=== PATIENT | female | born 1950 | race Caucasian/White ===

== ENCOUNTER 2021-03-06 19:18 | Emergency (ER) | payer OTHER ==
[~2021-03-06] VITALS: Ht 154.9 cm; Wt 67.0 kg
[2021-03-06] MEDS ORDERED: CARDIZEM LA180 M1 PO (19:23)
[2021-03-06] MEDS ORDERED: EFFEXOR XR37.5 MG PO (19:24)
[2021-03-06] MEDS ORDERED: DIGITEK125 MC2 PO (19:24)
[2021-03-06] MEDS ORDERED: DULCOLAX STOOL100 M1 PO (19:24)
[2021-03-06] MEDS ORDERED: FLORASTOR250 MG PO (19:25)
[2021-03-06] MEDS ORDERED: LANTUS SUBQ (19:25)
[2021-03-06] MEDS ORDERED: TOPROL XL50 MG (19:26)
[2021-03-06] MEDS ORDERED: MIRALAX119 GM PO (19:26)
[2021-03-06] MEDS ORDERED: LASIX 40 MG TAB40 MG PO (19:26)
[2021-03-06] MEDS ORDERED: NORCO5 PO (19:27)
[2021-03-06] MEDS ORDERED: MILLTRIUM SENI1 EACH PO (19:27)
[2021-03-06] MEDS ORDERED: KLOR-CON 1010 MEQ PO (19:28)
[2021-03-06] MEDS ORDERED: TUMS DUAL ACTI1 EACH PO (19:28)
[2021-03-06] MEDS ORDERED: ONDANSETRON HCL4 M2 PO (19:28)
[2021-03-06] MEDS ORDERED: XANAX 0.5 MG0.5 MG PO (19:29)
[2021-03-06] MEDS ORDERED: WARFARIN SODIUM4 MG PO (19:29)
[2021-03-06 22:40] LABS: ABSOLUTE BASOPHILS 0.1 thou/uL (0.0-0.2); ABSOLUTE EOSINOPHILS 0.4 thou/uL (0.0-0.7); ABSOLUTE LYMPHOCYTES 0.8 thou/uL (0.8-5.3); ABSOLUTE NEUTROPHILS 9.9 thou/uL (1.6-8.1); BASOPHILS 0.7 %; EOSINOPHILS 3.2 %; HEMATOCRIT 23.2 % (37.0-47.0); HEMOGLOBIN 7.7 gm/dL (12.0-15.0); LYMPHOCYTES 6.6 %; MCH 26.3 pg (26.0-34.0); MCHC 33.2 g/dL (28.0-37.0); MCV 79.1 fL (80.0-100.0); MONOCYTES 8.3 %; MPV 6.8 fl. (7.2-11.1); NUCLEATED RBCS 0 /100WBC; PLATELET COUNT* 284 thou/uL (150-400); POLYS 81.2 %; RBC 2.93 mil/uL (4.20-5.00); RDW-CV 15.2 % (10.5-14.5); WBC 12.2 thou/uL (4.0-11.0)
[2021-03-06 22:52] LABS: ANION GAP 7 mmol/L (7-16); BUN 60 mg/dL (7-18); CALCIUM 8.4 mg/dL (8.5-10.1); CHLORIDE 103 mmol/L (98-107); CO2 27 mmol/L (21-32); CREATININE 3.5 mg/dL (0.6-1.3); GLUCOSE 124 mg/dL (70-99); POTASSIUM 4.2 mmol/L (3.5-5.1); SODIUM 137 mmol/L (136-145)
[2021-03-06 23:02] LABS: ALBUMIN 1.9 g/dL (3.4-5.0); ALKALINE PHOSPHATASE 133 U/L (46-116); NT-PRO BRAIN NAT PEPTIDE > 35000 pg/mL (<300); SGOT 29 U/L (15-37); SGPT 9 U/L (30-65); TOTAL BILIRUBIN 0.3 mg/dL (<0.1-1.0); TOTAL PROTEIN 6.2 g/dL (6.4-8.2)
[2021-03-06 23:56] LABS: URINE CLARITY TURBID; URINE COLOR YELLOW
[2021-03-06 23:57] LABS: URINE PROTEIN 3+ (Negative); URINE SPECIFIC GRAVITY 1.025 (1.005-1.030)
[2021-03-06 23:58] LABS: URINE BILIRUBIN NEGATIVE (Negative); URINE BLOOD NEGATIVE (Negative); URINE GLUCOSE-RANDOM NEGATIVE (Negative); URINE KETONES TRACE (Negative)
[2021-03-06 23:59] LABS: URINE LEUKOCYTES-REFLEX 3+ (Negative); URINE NITRITE-REFLEX NEGATIVE (Negative); URINE UROBILINOGEN 0.2 E.U./dl (0.2-1.0)
[2021-03-07 00:03] LABS: SQUAMOUS NONE SEEN /LPF (0-3)
[2021-03-07 00:04] LABS: CASTS None Seen /LPF (None Seen)
[2021-03-07 00:05] LABS: URINE WBC-REFLEX >25 Many /HPF (0-5)
[2021-03-07 00:06] LABS: CRYSTALS None Seen /LPF (None Seen); URINE RBC 3-10 Few /HPF (0-2)
[2021-03-07 00:16] LABS: TRANSITIONAL EPITHEL CELL 0-3 Few /LPF (None Seen)
[2021-03-07 00:17] LABS: YEAST-REFLEX Present (None Seen)
[2021-03-07 01:00] VITALS: BP 154/58
--- NOTE | 2021-03-07 14:04 | EKG ---
[place] [address] ELECTROCARDIOGRAM REPORT Name: JOSEPH PEREZ [id number] Admission: 03/06/21 Attend Phys: Discharge: 03/07/21 Date of : 52 Date of Service: 03/06/212217 Report #: [id number] THIS REPORT FOR: //name// [facility] ED Test Date: 2021-03-06 Test Time: 22:18:24 Pat Name: JOSEPH PEERZ Department: Room: Gender: Claims Representative: : 1950 Requested By: Rowan Rouse Order Number: [id number] MD: Marco Vaz Measurements Intervals [place] Rate: 69 P: [place]: QRS: 98 QRSD: 153 T: -76 QT: 452 QTc: 485 Interpretive Statements Atrial fibrillation Atypical left bundle branch block No previous ECG available for comparison Electronically Signed On 03-07-2021 14:04:24 CDT by Marco Vaz [email or web address] <ELECTRONICALLY SIGNED> By: Marco Vaz MD, [facility] 03/07/21 1404 17 17 Marco aVz MD, [facility] /EPI
== END 2021-03-07 01:00 | disposition home or self-care (01) ==
LOC: M.ERS 19:18
PROVIDERS: Personal Emergency Response Attendant
DX: L89.159 Pressure ulcer of sacral region, unspecified stage (principal); D64.9 Anemia, unspecified; I12.9 Hypertensive chronic kidney disease with stage 1 through stage 4 chronic kidney disease, or unspecified chronic kidney disease; N18.9 Chronic kidney disease, unspecified; I48.91 Unspecified atrial fibrillation; E78.5 Hyperlipidemia, unspecified; Z79.01 Long term (current) use of anticoagulants; Z79.899 Other long term (current) drug therapy

== ENCOUNTER 2021-03-24 14:55 | Inpatient (IN) | payer OTHER ==
[~2021-03-24] VITALS: Ht 165.1 cm; Wt 68.5 kg
--- NOTE | ~2021-03-24 | PROC ---
[address] [address] PROCEDURE REPORT Name: JOSEPH PEREZ Room: [address] IN M.R.#: [id number] Admission: 03/24/21 Attend Phys: Indiana Kerr MD Discharge: 04/04/21 Date of : 52 Report #: [id number] THIS REPORT FOR: cc: Kris Newell William F. DO MYA,Medical Records Staff ~ For GI report, please see the Provation report in Perceptive 7 content. By: 1322Medical Records Staff MYA /STUART
[~2021-03-24 14:55] MED LIST: CARDIZEM LA180 M1 PO; DIGITEK125 MC2 PO; DULCOLAX STOOL100 M1 PO; EFFEXOR XR37.5 MG PO; FLORASTOR250 MG PO; KLOR-CON 1010 MEQ PO; LANTUS SUBQ; LASIX 40 MG TAB40 MG PO; MILLTRIUM SENI1 EACH PO; MIRALAX119 GM PO; NORCO5 PO; ONDANSETRON HCL4 M2 PO; TOPROL XL50 MG; TUMS DUAL ACTI1 EACH PO; WARFARIN SODIUM4 MG PO; XANAX 0.5 MG0.5 MG PO
[2021-03-24 14:59] VITALS: BP 144/65
[2021-03-24] MEDS ORDERED: LANOXIN125 MCG PO (15:07)
[2021-03-24] MEDS ORDERED: DULCOLAX STOOL100 M1 PO (15:07)
[2021-03-24] MEDS ORDERED: CARDIZEM LA180 M1 PO (15:07)
[2021-03-24] MEDS ORDERED: LASIX 40 MG TAB40 MG PO (15:08)
[2021-03-24] MEDS ORDERED: EFFEXOR XR37.5 MG PO (15:08)
[2021-03-24] MEDS ORDERED: FLORASTORKIDS250 MG PO (15:08)
[2021-03-24] MEDS ORDERED: LANTUS SUBQ (15:08)
[2021-03-24] MEDS ORDERED: LOPRESSOR50 MG PO (15:09)
[2021-03-24] MEDS ORDERED: MIRALAX17 GM PO (15:09)
[2021-03-24] MEDS ORDERED: ZOFRAN ODT4 MG PO (15:09)
[2021-03-24] MEDS ORDERED: RENAL VITAMIN0.8 MG PO (15:09)
[2021-03-24] MEDS ORDERED: TUMS300 MG PO (15:09)
[2021-03-24] MEDS ORDERED: NORCO5 PO (15:09)
[2021-03-24] MEDS ORDERED: XANAX 0.5 MG0.5 MG PO (15:10)
[2021-03-24] MEDS ORDERED: JANTOVEN4 MG PO (15:10)
[2021-03-24 16:05] LABS: ABSOLUTE EOSINOPHILS 0.2 thou/uL (0.0-0.7); ABSOLUTE LYMPHOCYTES 0.5 thou/uL (0.8-5.3); ABSOLUTE MONOCYTES 0.7 thou/uL (0.0-1.2); ABSOLUTE NEUTROPHILS 3.3 thou/uL (1.6-8.1); BASOPHILS 0.7 %; EOSINOPHILS 4.2 %; HEMATOCRIT 20.9 % (37.0-47.0); HEMOGLOBIN 7.1 gm/dL (12.0-15.0); LYMPHOCYTES 11.5 %; MCH 27.5 pg (26.0-34.0); MCHC 33.9 g/dL (28.0-37.0); MPV 7.8 fl. (7.2-11.1); NUCLEATED RBCS 0 /100WBC; PLATELET COUNT* 188 thou/uL (150-400); POLYS 69.6 %; RBC 2.59 mil/uL (4.20-5.00); RDW-CV 17.1 % (10.5-14.5); WBC 4.7 thou/uL (4.0-11.0)
[2021-03-24 16:11] LABS: CALCIUM 8.5 mg/dL (8.5-10.1); CREATININE 3.9 mg/dL (0.6-1.3); POTASSIUM 5.7 mmol/L (3.5-5.1)
[2021-03-24 16:16] LABS: ALBUMIN 2.2 g/dL (3.4-5.0); TOTAL BILIRUBIN 0.3 mg/dL (<0.1-1.0); TOTAL PROTEIN 6.3 g/dL (6.4-8.2)
--- NOTE | 2021-03-24 19:46 | NUR ---
PT'S TRI PEREZ WOULD LIKE PHONE CALL IF PT GETS A ROOM BEFORE HE IS ABLE TO RETURN TO ED - [phone]
[2021-03-24 20:29] VITALS: BP 135/65
[2021-03-24 22:12] VITALS: BP 138/67
[2021-03-25] VITALS (16 sets, daily range): BP systolic 119–161; BP diastolic 55–74
--- NOTE | 2021-03-25 05:34 | NUR ---
PATIENT ARRIVED ON FLOOR FROM ER AT ABOUT 2044. PATIENT ADMISSION HISTORY AND ASSESSMENT WAS COMPLETED CHARTED. PATIENT IS VERY HARD OF HEARING TO POINT OF ALMOST BEING DEAF. PATIENT CAN TALK, WAS TOLD PATIENT IS ABLE TO WRITE WHAT SHE NEEDS TO COMMUNICATE BUT PATIENT CANNOT SEE VERY WELL EITHER. ATTEMPTED TO WRITE OUT QUESTIONS BUT SHE WAS NOT UNDERSTANDING OR COULD NOT SEE WHAT I WROTE. COLOSTOMY WAS LEAKING WHEN PATIENT ARRIVED TO THE FLOOR NEW DRESSING AND BAG WAS PLACED. PATIENT HAD CAME WITH A WOUND VAC DRESSING STILL IN PLACE TO SACRAL WOUND. DRESSING WAS TAKEN DOWN AND A WET TO DRY WAS PLACED. PICTURES WERE TAKEN OF SACRAL WOUND, LEFT HEEL WOUND, AND LEFT HIP WOUND AND PLACED IN THE CHART. PATIENT WAS 130-140'S IN HER VITALS AT 4 AM. EKG WAS GOTTEN SHOWED AFIB. DR. WALKER WAS CALLED FOR ORDERS. ORDERS WERE RECEIVED TO TRANSFER TO [facility] AND YONATHAN CHAUDHARI. REPORT WAS CALLED TO [facility]AKTA. PATIENT WAS TRANSFERRED TO [facility] WITH HER BELONGINGS AT ABOUT 0586.
--- NOTE | 2021-03-25 05:54 | NUR ---
PT TRANSFERED TO ROOM 218 AT 0530. PT GIVEN CARDIZEM BOLUS THEN STARTED CARDIZEM DRIP FOR TREATMENT OF AFIB/RVR.
[2021-03-25 12:06] LABS: MCH 27.3 pg (26.0-34.0); MCHC 33.5 g/dL (28.0-37.0); MCV 81.5 fL (80.0-100.0); MPV 7.4 fl. (7.2-11.1); RBC 1.93 mil/uL (4.20-5.00); RDW-CV 16.9 % (10.5-14.5); WBC 3.8 thou/uL (4.0-11.0)
[2021-03-25 12:10] LABS: HEMATOCRIT 15.7 % (37.0-47.0); HEMOGLOBIN 5.3 gm/dL (12.0-15.0)
[2021-03-25 12:11] LABS: CALCIUM 7.5 mg/dL (8.5-10.1); CREATININE 3.6 mg/dL (0.6-1.3); POTASSIUM 4.9 mmol/L (3.5-5.1)
[2021-03-25 12:56] LABS: INR 1.8; PROTIME 18.1 Seconds (9.20-11.50)
[2021-03-25 18:45] LABS: HEMATOCRIT 21.3 % (37.0-47.0); HEMOGLOBIN 7.2 gm/dL (12.0-15.0)
--- NOTE | 2021-03-25 18:55 | NUR ---
RECEIVED REPORT. ASSUMED CARE OF PT AROUND 0730. AM ASSESSMENT AND VITALS COMPLETED CHARTED. MEDS PER EMAR. CARDIZEM GTT STOPPED AROUND 1435 PER PROTOCOL. 1 UNIT PRBC'S TRANSFUSED WITH HGB RECHECK 7.2. IRON DEXTRAN TO BE INFUSED BY DEMETRIA RN. AT BEDSIDE MOST OF SHIFT. PT TEARFUL AND UPSET ABOUT HER CONDITION - PT AND HER HAVE THOUGHT SOME ABOUT HOSPICE. DR ROME. TURNS Q2HRS AND PRN. DRESSING TO COCCYX/SACRAL WOUND CHAGNED THIS EVENING. SUPRAPUBIC ABEL IN PLACE TO DD. COLOSTOMY BAG EMPTIED. PUBLIC RELATIONS INTERN IN PLACE. PT REMAINS IN AFIB, RATE CONTROLLED. VERY POOR APPETITE - ASSISTED WITH ALL MEALS. FALL PRECAUTIONS IN PLACE. CALL LIGHT WITHIN REACH. HOURLY ROUNDING PERFORMED.
[2021-03-26 04:30] VITALS: BP 154/67
--- NOTE | 2021-03-26 06:34 | NUR ---
PT RECEIVED IRON DEXTROSE TEST DOSE. PT DID WELL WITH THAT SO SECOND DOSE GIVEN OVER 5 HOURS WITH NO ADVERSE REACTIONS.
[2021-03-26 08:00] VITALS: BP 147/70
[2021-03-26 08:38] LABS: INR 1.9; PROTIME 19.2 Seconds (9.20-11.50)
[2021-03-26 09:49] LABS: CALCIUM 7.5 mg/dL (8.5-10.1); CREATININE 3.4 mg/dL (0.6-1.3)
[2021-03-26 09:50] LABS: POTASSIUM 4.9 mmol/L (3.5-5.1)
--- NOTE | 2021-03-26 12:19 | CON ---
[address] [address] CONSULTATION Name: JOSEPH PEREZ Room: [address] ADM IN M.R.#: [id number] Admission: 03/24/21 Attend Phys: Indiana Kerr MD Discharge: Date of : 52 Report #: [id number] THIS REPORT FOR: cc: Kris Newell William F. DO Biggs, F. Douglas MD [facility] ~ DOC #: [id number] Yung Eduardo MD [facility] DATE OF CONSULTATION: 03/24/2021 CARDIOLOGY CONSULTATION HISTORY OF PRESENT ILLNESS: I was asked by Dr. Indiana Kerr to see this 71-year-old white female in Cardiology consultation for evaluation and treatment of atrial fibrillation with a rapid ventricular response. This lady has chronic atrial fibrillation, apparently. She is unknown to the service. She cannot give a history. 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 She is in a senior care. History was gleaned from the chart. She does have insulin-dependent diabetes mellitus. She has chronic diastolic heart failure. She does have chronic atrial fibrillation. She has anemia that is felt to be iron deficient, although she does have chronic kidney disease with a creatinine approximately 4. She has a stage 4 decubitus. She is quite deaf. She also has paraplegia and left bundle-branch block. Her paraplegia apparently came from a spinal blood clot, which is a complication of chemotherapy several years ago. She is not sure what the chemotherapy is for. She usually gets her care at [place], but she was brought here because the hospital was full. Her deafness apparently occurs from the antibiotic. I believe it was vancomycin. 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 She has a history of UTIs. She has a colostomy. She has neuromuscular dysfunction of the bladder. She has hypertension. She has had aortocoronary bypass graft; however, I do think she also has a mechanical heart valve from listening. I cannot tell what mechanical heart valve it is, but it is definitely mechanical. She is on Coumadin. Her home medications also include diltiazem 180 mg daily at bedtime, digoxin 0.125 mg daily, Effexor 37.5 mg daily, glargine insulin 10 units subQ at bedtime, Lasix 40 mg daily, metoprolol 50 mg daily, warfarin is apparently 4 mg daily. She has been placed on a Cardizem drip and her heart rate has been controlled. She gets a variety of p.r.n. She also gets a multivitamin. REVIEW OF SYSTEMS: Unobtainable. FAMILY HISTORY: Unobtainable SOCIAL HISTORY: Unobtainable. I do not believe she smokes [place] [address] CONSULTATION Name: JOSEPH PEREZ Room: [address] IN M.R.#: [id number] Admission: 03/24/21 Attend Phys: Indiana Kerr MD Discharge: Date of : 52 Report #: [id number] PHYSICAL EXAMINATION: GENERAL: She presents as a well-developed, not particularly well nourished, pale white female in no acute distress. She appears chronically ill. VITAL SIGNS: Her pulse is 81 and regular. Blood pressure is 119/56. Respirations are 16 and regular. She has a temperature of 99.8. HEENT: Atraumatic. Eyes clear. NECK: Supple. There is no jugular venous distention or hepatojugular reflux. Thyroid is not enlarged. There is no adenopathy. SKIN: Warm and dry. Mucous membranes are moist. LUNGS: Reveal decreased breath sounds diffusely. HEART: Revealed mechanical heart tones. The rhythm was irregularly irregular. The rate was approximately 80. PMI is not displaced. There were no murmurs, rubs, thrills, heaves or gallops. ABDOMEN: Soft, but diffusely tender. There were no palpable masses. There is no organomegaly. EXTREMITIES: Revealed no cyanosis, clubbing or edema. NEUROLOGIC: The patient did not mentate normally. She could talk, but talk minimally. She could not hear. She did move her arms normally. She could not move her lower extremities normally. LABORATORY DATA: Her EKG showed atrial fibrillation with a rapid ventricular response and left bundle branch block. Heart rate was 132 that is from early this morning at 4:33 a.m. A followup EKG at 10:00 a.m. showed atrial fibrillation with a controlled ventricular response. The heart rate was 104. There were frequent VPCs. There was left bundle branch block. IMPRESSION: 1. Atrial fibrillation with a rapid ventricular response. This lady has chronic atrial fibrillation. 2. Ventricular premature complexes. 3. Insulin-dependent diabetes mellitus. 4. Chronic diastolic heart failure. 5. Anemia. 6. Iron deficiency. 7. Fever of uncertain cause. 8. Stage 4 decubitus. 9. Deafness. 10. Chronic kidney disease. 11. Paraplegia. 12. Left bundle-branch block. 13. Cognitive defect. RECOMMENDATION: I would continue her current meds and get her back on most of her home meds. I did investigate the cause of her fever and treat her [address] [place] [address] CONSULTATION Name: JOSEPH PEREZ Room: [address] IN ..#: [id number] Admission: 03/24/21 Attend Phys: Indiana Kerr MD Discharge: Date of : 52 Report #: [id number] aggressively and consult Surgery with regard to her decubitus. I will be careful not to fluid overload this lady. Please see my orders. She needs an echo and she needs her digoxin level checked. She will probably need to be put back on digoxin. She will probably need to be put back on a beta-prashant. The dose should be split; however, and she will need to be put back on her oral dose of Cardizem ultimately. Thank you very much for asking me to see this patient. If you have any questions, please feel free to contact me. Yung Eduardo MD [facility] DFB/KENA/SOT <ELECTRONICALLY SIGNED> By: James Eduardo MD, [facility] 03/26/21 1219 [id number]. Yung Eduardo MD, [facility] /nt
[2021-03-26 12:45] VITALS: BP 140/81
[2021-03-26 13:22] LABS: HEMATOCRIT 20.1 % (37.0-47.0); MCH 28.1 pg (26.0-34.0); MCHC 34.7 g/dL (28.0-37.0); MCV 81.1 fL (80.0-100.0); MPV 8.1 fl. (7.2-11.1); RBC 2.48 mil/uL (4.20-5.00); RDW-CV 16.9 % (10.5-14.5); WBC 4.4 thou/uL (4.0-11.0)
[2021-03-26 15:57] LABS: URINE BILIRUBIN NEGATIVE (Negative); URINE BLOOD 3+ (Negative); URINE CLARITY CLOUDY; URINE COLOR YELLOW; URINE GLUCOSE-RANDOM NEGATIVE (Negative); URINE KETONES NEGATIVE (Negative); URINE LEUKOCYTES 3+ (Negative); URINE NITRITE NEGATIVE (Negative); URINE PROTEIN 2+ (Negative); URINE UROBILINOGEN 0.2 E.U./dl (0.2-1.0)
[2021-03-26 16:09] LABS: SQUAMOUS 0-3 Few /LPF (0-3)
[2021-03-26 16:10] LABS: BACTERIA >30 Many /HPF (None Seen); CASTS None Seen /LPF (None Seen); CRYSTALS None Seen /LPF (None Seen); URINE RBC >20 Many /HPF (0-2); URINE WBC >25 Many /HPF (0-5)
[2021-03-26 16:25] VITALS: BP 132/67
--- NOTE | 2021-03-26 19:00 | NUR ---
RECEIVED REPORT. ASSUMED CARE OF PT AROUND 0730. AM ASSESSMENT AND VITALS COMPLETED CHARTED. MEDS PER EMAR. RESEARCH NURSE PRACTITIONER IN PLACE, TRACING CHARTED. AFIB RATE CONTROLLED. AND DAUGHTER AT BEDSIDE AT TIMES. PT REFUSED BREAKFAST AND LUNCH BUT AT ALL OF DINNER. SUPRAPUBIC CATHETER IN PLACE AND DRAINING - CATH CARES COMPLETED. UA'S SENT DOWN. COLOSTOMY EMPTIED TWICE AND CHARTED. RIGHT UPPER ARM PICC RECEIVED CATH FLOW AND NOW DRAWS BLOOD. PICC DRESSING CHANGED AND CAPS CHANGED. EXTENSIVE WOUND CARE COMPLETED AND SATURDAY PICS TAKEN. WOUNDS FOLLOWS: SACRAL/COCCYX STAGE 4 DECUB - SEE CHARTING RIGHT HEEL PRESSURE INJURY - SEE CHARTING LEFT HEEL - ALMOST HEALED, SMALL PRESSURE INJURY; REMAINS NON-BLANCHABLE; DRY AND FLAKEY - BORDERED FOAM APPLIED. LEFT BUTTOCK/THIGH JUNCTURE - POTENTIAL SHEARING WOUND/PRESSURE WOUND; HEALING WITH SLOUGH MATERIAL PRESENT; BLED UPON CLEANING; BORDERED FOAM APPLIED RIGHT BUTTOCK/THIGH JUNCTURE - POTENTIAL SHEARING WOUND/PRESSURE WOUND; HEALING WITH SLOUGH MATERIAL PRESENT; ALSO BLED UPON CLEANING; BORDERD FOAM APPLIED. WOUND CARE CONSULT PLACED FOR TOMOROW. LEFT LOWER EXTREMITY/POSTERIOR THIGH - OPEN PRESSURE WOUND WITH BRISK BLEEDING UPON CLEANING; BORDERED FOAM APPLIED.
[2021-03-26 20:00] VITALS: BP 134/52
[2021-03-27] VITALS: BP 128/62
[2021-03-27 04:00] VITALS: BP 157/66
--- NOTE | 2021-03-27 04:25 | NUR ---
ASSUMED PT CARE AT APPROX. 1930. PT IS A/OX4. VSS. 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 MEDICATIONS ADMINISTERED PRESCRIBED. SEE EMAR. PER ORDER PT IS NPO AT MIDNIGHT. PT REPOSITIONED Q2H AND PRN. DRESSINGS TO COCCYX/SACRAL WOUND ARE C/D/I. SUPRAPUBIC ABEL IN PLACE TO COLLECTION DRAIN. COLOSTOMY BAG APPARATUS CHANGED. STOOL SAMPLE COLLECTED AND SENT TO LAB. STOOL TESTED POSITIVE FOR OCCULT BLOOD. A YOUCALL PAGE WAS SENT TO MD MELTON. NO NEW ORDERS OBTAINED AT THIS TIME. HOURLY ROUNDS COMPLETE CHARTED. ASSESSMENTS COMPLETED. FALL PRECAUTIONS IN PLACE FOR SAFETY. CALL LIGHT WITHIN REACH. PT CURRENTLY RESTING IN BED ASLEEP. WILL CONT. TO MONITOR.
[2021-03-27 04:32] LABS: INR 2.2; PROTIME 22.7 Seconds (9.20-11.50)
[2021-03-27 04:46] LABS: CALCIUM 7.8 mg/dL (8.5-10.1); CREATININE 3.3 mg/dL (0.6-1.3); PHOSPHORUS* 5.3 mg/dL (2.5-4.9); POTASSIUM 4.4 mmol/L (3.5-5.1)
[2021-03-27 08:22] VITALS: BP 150/69
--- NOTE | 2021-03-27 10:24 | NUR ---
PER DR. RIOS, ADDED VANCOMYCIN TO PATIENT'S ALLERGY LIST PATIENT'S DAUGHTER REPORTS THAT PATIENT BECAME DEAF DUE TO "VANCOMYCIN TOXICITY".
--- NOTE | 2021-03-27 10:25 | EKG ---
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: TEE : 1950 Requested By: James Eduardo Order Number: [id number] Reading MD: Bandar Herring Measurements Intervals [place] Rate: 93 P: [place]: QRS: 82 QRSD: 150 T: 266 QT: 351 QTc: 437 Interpretive Statements Atrial fibrillation Ventricular premature complex LBBB Compared to ECG 03/25/2021 10:00:10 [email or web address] no longer noted Electronically Signed On 03-27-2021 10:25:29 CDT by Bandar Herring [email or web address] <ELECTRONICALLY SIGNED> By: Bandar Herring MD, [facility] 03/27/21 1025 1010 1010 Bandar Herring MD, [facility] /EPI
[2021-03-27 12:00] VITALS: BP 140/56
--- NOTE | 2021-03-27 13:38 | NUR ---
WOUND NURSE: PATIENT SEEN TO ADDRESS SEVERAL WOUNDS. STAGE 4 PRESSURE INJURY ON SACRUM. SEE DOCUMENTATION UNDER INTERVENTION. WOUND VAC DRESSING APPLIED PRESCRIBED. HAS EXPOSED BONE IN WOUND BED ALONG WITH RED, GRANULATION AND NONGRANULATION TISSUE. THERE IS A SMALL AMOUNT OF SLOUGH ALSO NOTED IN THE WOUND. THEREIS IS NO ODOR, PERIWOUND REDNESS, WARMTH, OR INDURAITON. BILATERAL ISCHIAL WOUND PRESENT WITH THE SAME WOUND BEDS IN APPEARENCE. BOTH WITH 100% YELLOW SLOUGH IN THE WOUDN BED AND SEROUS DRAINAGE. LEFT TROCHANTERIC WOUND PRESENTS WITH FULL THICKNESS TISSUE LOSS, RED NONGRANULATION TISSUE IN THE WOUND BED AND SMALL AMOUNT OF YELLOW SLOUGH IN THE WOUND BED. RIGHT HEEL WITH BLACKENDD ESCHAR FIRMLY ADHERED TO THE WOUND BED. MIMIAL SEPARATION ALONG ONE EDGE OF THE WOUND. SCANT SEROUS DRAINAGE. LEFT HEEL WITH SHALLOW AND INTACT PINHEAD SIZED SCAB AND OFFLOADING BOOT IS IN PLACE. PATIENT CAN'T HEAR AT THIS TIME D/T OTOTOXICITY OF A MEDICATION AND IS NOT TEACHEABLE NOW.
--- NOTE | 2021-03-27 14:02 | 2DMMODE ---
[place] [address] 2 D/M-MODE ECHOCARDIOGRAM Name: EVAN PEREZN Room: [address] ADM IN Nena.#: [id number] Admission: 03/24/21 Attend Phys: Indiana Kerr, Discharge: Date of : 52 Date of Service: 03/27/21 1402 Report #: [id number] THIS REPORT FOR: cc: Kris Newell,Kris Burgos,Bandar Arora MD [facility] ~ APPROVED REPORT Study performed: 03/27/2021 11:44:11 EXAM: Comprehensive 2D, Doppler, and color-flow Echocardiogram Patient Location: In-Patient Room #: [facility] Status: routine BSA: 1.70 HR: 102 bpm BP: 150/69 mmHg Rhythm: Atrial Fibrillation Other Information Study Quality: Excellent Indications Atrial Fibrillation CAD 2D Dimensions IVSd: 11.20 (7-11mm) LVOT Diam: 19.49 (18-24mm) LVDd: 45.56 mm PWd: 11.70 (7-11mm) Ascending Ao: 30.71 (22-36mm) LVDs: 34.17 (25-40mm) Volumes Left Atrial Volume (Systole) LA ESV Index: 55.00 mL/m2 Aortic Valve AoV Peak Hemanth.: 1.93 m/s AO Peak Gr.: 14.84 mmHg LVOT Max P.57 mmHg AO Mean Gr.: 8.63 mmHg LVOT Mean P.77 mmHg LVOT Max V: 0.94 m/s AO V2 VTI: 24.35 cm LVOT Mean V: 0.59 m/s LAURA (VTI): 1.50 cm2 LVOT V1 VTI: 12.25 [place] [address] 2 D/M-MODE ECHOCARDIOGRAM Name: JOSEPH PEREZ Room: [address] IN .R.#: [id number] Admission: 03/24/21 Attend Phys: Indiana Kerr, Discharge: Date of : 52 Date of Service: 03/27/21 1402 Report #: [id number] Pulmonary Valve PV Peak Hemanth.: 1.15 m/s PV Peak Gr.: 5.28 mmHg Tricuspid Valve RAP Estimate: 5.00 mmHg TR Peak Gr.: 44.35 mmHg RVSP: 49.00 mmHg PA Pressure: 49.00 mmHg Left Ventricle The left ventricle is normal size. paradoxical septal motion Mild concentric left ventricular hypertrophy. Left ventricular systolic function is borderline. LVEF is 45-50%. This study is not technically sufficient to allow evaluation of the LV diastolic function due to atrial fibrillation. Right Ventricle The right ventricle is normal size. The right ventricular systolic function is normal. Atria Left atrium is severely dilated. The right atrium size is normal. Aortic Valve Mechanical aortic valve is present. traceaortic regurgitation. Mild aortic stenosis. Mitral Valve The mitral valve is normal in structure. Mild mitral regurgitation. No evidence of mitral valve stenosis. Tricuspid Valve The tricuspid valve is normal in structure. Mild tricuspid regurgitation. estimated pa pressure 60 mm hg Pulmonic Valve The pulmonary valve is normal in structure. Trace pulmonic regurgitation. Great Vessels The aortic root is normal in size. IVC is normal in size and collapses >50% with inspiration. Pericardium There is no [place] [address] 2 D/M-MODE ECHOCARDIOGRAM Name: EVAN PEREZN Room: [address] IN ..#: [id number] Admission: 03/24/21 Attend Phys: Indiana Kerr, Discharge: Date of : 52 Date of Service: 03/27/211401 Report #: [id number] <Conclusion> Mild concentric left ventricular hypertrophy. LVEF is 45-50%. Left atrium is severely dilated. Mechanical aortic valve is present. Mild aortic stenosis. Mild mitral regurgitation. Mild tricuspid regurgitation. estimated pa pressure 60 mm hg <ELECTRONICALLY SIGNED> By: Bandar Herring MD, [facility] 03/27/211401 01 1402 Bandar Herring MD, [facility] /INF
--- NOTE | 2021-03-27 14:16 | EKG ---
[place] [address] ELECTROCARDIOGRAM REPORT Name: JOSEPH PEREZ Room: [address] ADM IN .R.#: [id number] Admission: 03/24/21 Attend Phys: Indiana Kerr, Discharge: Date of : 52 Date of Service: 03/25/21 0433 Report #: [id number] THIS REPORT FOR: //name// [facility] Test Date: 2021-03-25 Test Time: 04:33:07 Pat Name: JOSEPH PEREZ Department: Room: [facility] Gender: F Medical Center Director: BXIONG : 1950 Requested By: Indiana Kerr Order Number: [id number] Ami MD: Bandar Herring Measurements Intervals [place] Rate: 132 P: [place]: QRS: 48 QRSD: 144 T: 236 QT: 313 QTc: 464 Interpretive Statements Atrial fibrillation Left bundle branch block Compared to ECG 03/06/2021 22:18:24 rate has increased Electronically Signed On 03-27-2021 14:16:22 CDT by Bandar Herring [email or web address] <ELECTRONICALLY SIGNED> By: Bandar Herring MD, [facility] 03/27/21 1416 0433 0433 Bandar Herring MD, [facility] /EPI
--- NOTE | 2021-03-27 14:17 | EKG ---
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 : 1950 Requested By: Indiana Kerr Order Number: [id number] Ami MD: Bandar Herring Measurements Intervals [place] Rate: 104 P: [place]: QRS: 66 QRSD: 148 T: 246 QT: 367 QTc: 483 Interpretive Statements sinus rhythm Ventricular bigeminy Left bundle branch block Compared to ECG 03/25/2021 04:33:07 Ventricular premature complex(es) now present sinus rhythm now noted Electronically Signed On 03-27-2021 14:17:33 CDT by Bandar Herring [email or web address] <ELECTRONICALLY SIGNED> By: Bandar Herring MD, [facility] 03/27/21 1417 1000 1000 Bandar Herring MD, [facility] /EPI
--- NOTE | 2021-03-27 15:33 | NUR ---
CM ASSESSMENT: CM SPOKE TO THE PT'S SPOUSE TO DISCUSS CM ASSESSMENT. PT'S SPOUSE INFORMS THAT THE PT ADMITTED HERE FROM [facility]. PT NORMALLY LIVES AT HOME WITH HER SPOUSE. PT'S SPOUS INFORMS THAT HE AND THEIR CHILDREN ASSIST AND PROVIDED HER CARES AT HOME PRIOR TO ADMIT. PT HAS HOSPITAL BED, VANNA LIFT, WHEELCHAIR, AND WOUND VAC AT HOME. PRIOR TO PT'S SNF ADMIT AT [facility] PT WAS ON-SERVICE WITH [facility] FOR NURSING AND PT. PT'S SPOUSE INFORMS THAT HE HAS BEEN THINKING ABOUT TAKING THE PT HOME AT D/C, BUT WANTS TO DISCUSS THIS FURTHER WITH HIS DAUGHTER. CM SPOKE TO IS TO DISCUSS PT AND THEY CONFIRM THAT THE PT IS CURRENTLY SKILLED, BUT HAS NOT BEEN ABLE TO PARTICIPATE MUCH AND MAY BE OUT OF SKILLED DAYS. ISM ADMISSIONS TO FIND OUT THE NUMBER OF SNF DAYS THE PT HAS LEFT AND F/U WITH THIS CM. CM WILL REMAIN AVAILABLE TO ASSIST AND FOLLOW NEEDED.
[2021-03-27 17:39] LABS: HEMOGLOBIN 7.2 gm/dL (12.0-15.0); MCHC 34.1 g/dL (28.0-37.0); MCV 82.1 fL (80.0-100.0); MPV 7.8 fl. (7.2-11.1); RBC 2.56 mil/uL (4.20-5.00); RDW-CV 17.5 % (10.5-14.5); WBC 6.1 thou/uL (4.0-11.0)
[2021-03-27 17:54] VITALS: BP 142/62
--- NOTE | 2021-03-27 18:31 | NUR ---
PATIENT HAS REMAINED A&OX4, PLEASANT AND COOPERATIVE WITH CARES THIS SHIFT. PATIENT HAS BEEN COMMUNICATING BY TALKING AND WRITING WITH STAFF ON PAPER AND/OR WHITE BOARD. COLOSTOMY DRAINING DARK BROWN LIQUID STOOL. SUPRAPUBIC CATHETER IN PLACE TO DD, YELLOW URINE IN COLLECTION BAG. WOUND VAC PLACED TO BUTTOCK AND ALL OTHER WOUNDS CLEANED AND DRESSED BY WOUND CARE NURSE THIS MORNING. PER DR. RIOS, NS D/C'D AFTER PATIENT RETURNED FROM EGD AND ALBUMIN STARTED. PATIENT NOW ON RANGEL MATTRESS. SPOKE WITH DR. SCHRADER THIS AFTERNOON WHILE PATIENT WAS IN PROCEDURE AND SHE STATES SHE WILL CALL BACK TOMORROW AND CONSULT WITH PATIENT. DR. SCHRADER ORDERED 2ND BLOOD CULTURES HOWEVER PATIENT IS REFUSING LAB DRAWS UNLESS BEING DRAWN FROM PICC. URINARY CATHETER CURRETNLY CLAMPED TO COLLECT URINE PER DR. RIOS' ORDER. WILL RELAY TO ONCOMING SHIFT. NURSE. CALL LIGHT AND FREQUENTLY USED ITEMS WITHIN REACH.
[2021-03-27 20:00] VITALS: BP 144/81
[2021-03-28] VITALS (9 sets, daily range): BP systolic 125–142; BP diastolic 41–66
--- NOTE | 2021-03-28 04:18 | NUR ---
ASSUMED PT CARE AT APPROX 1930. PT IS AWAKE AND ORIENTED X4. PT IS NOT IN DISTRESS, NO DESATURATIONS NOTED ON ROOM AIR. PT IS TRACING AFIB-RATE CONTROLLED ON THE REGISTERED VETERINARY TECHNICIAN. PT DENIES PAIN. WOUND VAC INTACT-DRAINING SEROSANGUINOUS OUTPUT. POSITION CHANGES DONE-PT IS ON LOW AIRLOSS MATRESS. NO ACUTE CHANGES THIS SHIFT. CALL LIGHT WITHIN REACH. HOURLY ROUNDING DONE FOR PT SAFETY. HIGH FALL PRECAUTIONS IN PLACE.
[2021-03-28 05:07] LABS: PROTIME 20.6 Seconds (9.20-11.50)
[2021-03-28 05:46] LABS: CALCIUM 7.6 mg/dL (8.5-10.1); CREATININE 3.1 mg/dL (0.6-1.3); POTASSIUM 3.9 mmol/L (3.5-5.1)
[2021-03-28 11:40] LABS: SMEAR FOR EOSINOPHILS Moderate per HPF
--- NOTE | 2021-03-28 13:15 | NUR ---
PLAN OF CARE: PHYSICIAN INFORMS OF PLAN FOR PT TO POSSIBLY D/C 1-2 DAYS PENDING I.D. RECOMMENDAITONS FOR IV ABT'S, NEW PICC PLACEMENT. CM SPOKE TO THE PT AND HER SPOUSE TO DISCUSS THIS. PT AND SPOUSE INFORM OF PLAN FOR THE PT TO RETURN HOME AT D/C, AND THAT PT'S SPOUSE AND DTR WILL ASSIST WITH CARES AND IV ABT'S. CM CALLED AND FAXED PT'S CLINICAL INFO TO [facility] TO CHECK COST. PT'S SPOUSE ALSO INFORMS THAT HE WOULD LIKE HH WITH [facility] AT D/C THEY HAD PREVOUSLY BEEN ON-SERVICE WITH [facility]. BARRIER TO PT'S D/C MAY BE THE COST OF THE IV ABT'S AND ALSO THAT IF PT NEEDS TO RETURN TO SNF AT [facility] PT MAY BE OUT SKILLED DAYS. [facility] TO CHECK ON THIS AND RETURN CALL. CM WILL REMAIN AVAILABLE TO ASSIST AND FOLLOW NEEDED. [facility] PHONE: [phone] FAX: [phone] [facility] PHONE: [phone] FAX: [phone]
[2021-03-28 18:28] LABS: CALCIUM 7.7 mg/dL (8.5-10.1); CREATININE 3.1 mg/dL (0.6-1.3); PHOSPHORUS* 4.4 mg/dL (2.5-4.9)
--- NOTE | 2021-03-28 18:30 | NUR ---
Pt nauseated early in shift, no emesis. Pt took most of am meds late in the morning. HR 40s-50s this afternoon until supper. Pt has poor appetite and minimal intake, though eating a little bit for supper (no breakfast and very little lunch). VSS. visited pt briefly today. Discharge plan is to discharge with Home Health care. Will continue to monitor.
[2021-03-29] VITALS (8 sets, daily range): BP systolic 129–156; BP diastolic 54–78
--- NOTE | 2021-03-29 04:17 | NUR ---
ASSUMED PT CARE AT APPROX 1930. PT IS AWAKE AND ORIENTED X4. PT IS NOT IN DISTRESS, NO DESATURATIONS NOTED ON ROOM AIR. PT IS TRACING AFIB BBB, WITH SOME PVC's ON THE CREPE LAMINATOR OPERATOR. PT DENIES PAIN OF THIS TIME. POSITION CHANGES DONE. NO ACUTE CHANGES THIS SHIFT. CALL LIGHT WITHIN REACH. HOURLY ROUNDING DONE FOR PT SAFETY.
[2021-03-29 06:54] LABS: CALCIUM 7.7 mg/dL (8.5-10.1); POTASSIUM 3.6 mmol/L (3.5-5.1)
[2021-03-29 06:57] LABS: INR 2.9; PROTIME 29.3 Seconds (9.20-11.50)
--- NOTE | 2021-03-29 09:24 | NUR ---
WOUND NURSE: PATIENT SEEN FOR WOUND VAC DRESSING CHANGE TO SACRUM. NO CHANGE NOTED IN WOUND MEASUREMENT FROM INITIAL ASSESSMENT BY THIS NURSE. CONTINUES TO HAVE 90% RED GRANULATION AND NONGRANULATION TISSUE IN THE WOUND BED, NOW 10% FIRMLY ADHERENT YELLOW SLOUGH. THERE IS 200ML SEROUSANGUINOUS DRAINAGE IN THE CANNISTER. EXPOSED BONE REMAINS IN WOUND BED. PERIWOUND WITHOUT REDNESS, WARMTH, OR INDURATION. CLEANSED WITH SOAP AND WATER, RINSED, THEN PATTED DRY. APPLIED SKIN PREP TO INTACT PERIWOUND TISSUE, APPLIED GRANUFOAM TO WOUND BED (CUT TO FIT), COVERED WITH TRANSPARENT DRAPE. BRIDGED DRESSING TO FRON TO RIGHT THIGH. ATTACHED TO VAC ULTA. 150MMHG CONTINUOUS NEGATIVE PRESSURE AND INTENSITY HIGH. THIS WAS TOLERATED WELL BY THE PATIENT. PATIENT IS UNABLE TO HEAR. COMMUNICATED WITH HER IN WRITING AND WITH GOOD UNDERSTANDING ACHIEVED.
[2021-03-29 09:47] LABS: ABSOLUTE EOSINOPHILS 0.2 thou/uL (0.0-0.7); ABSOLUTE LYMPHOCYTES 0.7 thou/uL (0.8-5.3); ABSOLUTE MONOCYTES 0.9 thou/uL (0.0-1.2); ABSOLUTE NEUTROPHILS 6.3 thou/uL (1.6-8.1); BASOPHILS 0.3 %; EOSINOPHILS 2.4 %; LYMPHOCYTES 8.1 %; MCHC 34.2 g/dL (28.0-37.0); MCV 81.9 fL (80.0-100.0); MONOCYTES 11.2 %; MPV 7.8 fl. (7.2-11.1); NUCLEATED RBCS 0 /100WBC; PLATELET COUNT* 128 thou/uL (150-400); RBC 2.21 mil/uL (4.20-5.00); RDW-CV 17.6 % (10.5-14.5); WBC 8.1 thou/uL (4.0-11.0)
[2021-03-29 09:58] LABS: HEMATOCRIT 18.1 % (37.0-47.0); HEMOGLOBIN 6.2 gm/dL (12.0-15.0)
--- NOTE | 2021-03-29 11:08 | PATH ---
[address] [address] PATHOLOGY RPT PROCEDURE Name: JOSEPH LI Room: [address] IN M.R.#: [id number] Admission: 03/24/21 Date of : 52 Discharge: Report #: [id number] Path Case #: [id number] [facility] Accession Number: [id number] . 01 Material submitted: . duodenum - DUODENAL BIOPSIES . 01 Clinical history: . EGD IN OR . 02 Diagnosis: Duodenal biopsies: - Moderate nonspecific active duodenitis, negative for granulomas, viral inclusions and dysplasia/adenomatous change. (LIZBETH:ruthie; 03/29/2021) S 03/29/2021 1010 Local . 02 Electronically signed: . Cecil Snow MD, Pathologist NPI- [id number] . 01 Gross description: . Received in formalin labeled "Tania Li, duodenal biopsy" are 2 martines-brown soft tissue fragments measuring in aggregate 0.7 x 0.5 x 0.1 cm. The specimen is submitted entirely in A1. (MOHAMUD; 03/28/2021) MOHAMUD/MOHAMUD 03/28/2021 1711 Local . 02 Pathologist provided ICD-10: K29.80 . 02 CPT . [id number] Specimen Comment: A courtesy copy of this report has been sent to [phone], [phone] Specimen Comment: [phone] Specimen Comment: Report sent to , DR MELTON / DR ROSARIO Performed at: [address], [place], [place] [id number] MD Malcolm Oneill MD Phone: [phone] Performed at: [facility] [address], [place], [place] [id number] MD Cecil Snow MD Phone: [phone]
--- NOTE | 2021-03-29 15:34 | NUR ---
PLAN OF CARE: PHYSICIAN INFORMS THAT I.D. RECOMMENDAITONS REMAIN PENDING. PT AND SPOUSE INFORM OF PLAN FOR THE PT TO RETURN HOME WITH HH AT D/C AND SPOUSE AND DTR PROVIDING CARES. PT'S SPOUSE INFORMS THAT HE OK WITH PT COMING HOME WITH IV ABT'S AND BELIEVES THAT HE IS TEACHABLE. CM WILL REMAIN AVAILABLE TO ASSIST AND FOLLOW NEEDED.
--- NOTE | 2021-03-30 05:08 | NUR ---
ASSUMED PT CARE AT APPROX 1930. PT IS AWAKE AND ORIENTED X4. PT IS NOT UN DISTRESS, NO DESATURATIONS NOTED ON ROOM AIR. PT IS TRACING AFIB ON THE SENIOR CARE ASSISTANT. PT IS OFFERED SOME PROTEIN DRINK/SNACKS, BUT STATED SHE IS NOT INTERESTED AT THE MOMENT, PT EDUCATION GIVEN ON THE IMPORTANCE OF NUTRITION TO WOUND HEALING. NO OTHER CHANGES THIS SHIFT. CALL LIGHT WITHIN REACH. HOURLY ROUNDING DONE FOR PT SAFETY. FALL PRECAUTIONS IN PLACE.
[2021-03-30 05:13] VITALS: BP 157/69
[2021-03-30 06:25] LABS: ABSOLUTE EOSINOPHILS 0.2 thou/uL (0.0-0.7); ABSOLUTE LYMPHOCYTES 0.5 thou/uL (0.8-5.3); ABSOLUTE MONOCYTES 0.9 thou/uL (0.0-1.2); ABSOLUTE NEUTROPHILS 7.1 thou/uL (1.6-8.1); BASOPHILS 0.5 %; EOSINOPHILS 2.1 %; HEMATOCRIT 21.3 % (37.0-47.0); HEMOGLOBIN 7.1 gm/dL (12.0-15.0); LYMPHOCYTES 5.5 %; MCH 27.8 pg (26.0-34.0); MCHC 33.3 g/dL (28.0-37.0); MCV 83.6 fL (80.0-100.0); MONOCYTES 10.8 %; NUCLEATED RBCS 0 /100WBC; PLATELET COUNT* 102 thou/uL (150-400); POLYS 81.1 %; RBC 2.54 mil/uL (4.20-5.00); WBC 8.8 thou/uL (4.0-11.0)
[2021-03-30 06:35] LABS: CALCIUM 7.6 mg/dL (8.5-10.1); CREATININE 2.8 mg/dL (0.6-1.3); POTASSIUM 3.3 mmol/L (3.5-5.1)
[2021-03-30 06:37] LABS: INR 3.5
--- NOTE | 2021-03-30 07:10 | NUR ---
CHANGE OF SHIFT BEDSIDE REPORT GIVEN PATIENT SEEN AT BEDSIDE, IN BED ASLEEP ASSUMED PATIENT CARE
--- NOTE | 2021-03-30 07:25 | NUR ---
CHANGE OF SHIFT BEDSIDE REPORT GIVEN PATIENT SEEN AT BESIDE IN BED ASLEEP ASSUMED PATIENT CARE
[2021-03-30 08:00] VITALS: BP 168/72
[2021-03-30 11:58] VITALS: BP 153/73
--- NOTE | 2021-03-30 15:17 | NUR ---
PLAN OF CARE: PHYSICIAN INFORMS OF PLAN FOR THE PT TO REMAIN INPT FOR 1-2 MORE DAYS. NO PLAN FOR IV ABT'S AT D/C, BUT WILL HAVE ORAL ABT'S AT D/C. PLAN FOR PT TO RETURN HOME WITH HH. PT AND SPOUSE HAVE CHOSEN [facility]. CM WILL REMAIN AVAILABLE TO ASSIST AND FOLLOW NEEDED.
[2021-03-30 16:43] VITALS: BP 148/71
[2021-03-30 19:45] VITALS: BP 145/68
[2021-03-31 01:42] VITALS: BP 170/75
[2021-03-31 04:00] VITALS: BP 160/85
--- NOTE | 2021-03-31 04:22 | NUR ---
ASSUMED PT CARE AT APPROX. 1930. PT IS A/OX4. VSS. PT IS TRACING AFIB/BBB/PVC'S ON GEOPHYSICAL PROSPECTING PERMIT AGENT. MEDICATIONS ADMINISTERED PRESCRIBED. SEE EMAR. PT REPOSITIONED Q2H AND PRN. DRESSINGS TO COCCYX/SACRAL WOUND ARE C/D/I. WOUND VAC IN PLACE TO SACRUM. DRESSINGS TO BOTH L/R ISCHIAL PROCESSES ARE IN PLACE. SUPRAPUBIC ABEL IN PLACE TO COLLECTION DRAIN. COLOSTOMY BAG INTACT. NO BM THIS SHIFT. HOURLY ROUNDS COMPLETE CHARTED. NO ACUTE CHANGES OCCURRED THIS SHIFT. PT CURRENTLY RESTING IN BED ASLEEP. ASSESSEMENTS COMPLETED. FALL PRECAUTIONS IN PLACE FOR SAFETY. CALL LIGHT WITHIN REACH. WILL CONT. TO MONITOR.
[2021-03-31 07:50] VITALS: BP 145/63
[2021-03-31 08:29] LABS: HEMATOCRIT 23.2 % (37.0-47.0); HEMOGLOBIN 7.7 gm/dL (12.0-15.0); MCH 27.9 pg (26.0-34.0); MCHC 33.3 g/dL (28.0-37.0); MCV 83.6 fL (80.0-100.0); NUCLEATED RBCS 0 /100WBC; PLATELET COUNT* 113 thou/uL (150-400); RBC 2.77 mil/uL (4.20-5.00); RDW-CV 17.4 % (10.5-14.5); WBC 10.3 thou/uL (4.0-11.0)
[2021-03-31 08:35] LABS: CALCIUM 7.6 mg/dL (8.5-10.1); POTASSIUM 3.8 mmol/L (3.5-5.1)
[2021-03-31 08:38] LABS: PROTIME 51.3 Seconds (9.20-11.50)
[2021-03-31 08:43] LABS: INR 5.4
[2021-03-31 08:56] LABS: ABSOLUTE LYMPHOCYTES 0.6 thou/uL (0.8-5.3); ABSOLUTE MONOCYTES 0.2 thou/uL (0.0-1.2); ABSOLUTE NEUTROPHILS 9.5 thou/uL (1.6-8.1); PLATELET ESTIMATE ADEQUATE
[2021-03-31 11:55] VITALS: BP 197/96
--- NOTE | 2021-03-31 13:18 | NUR ---
PLAN OF CARE: PHYSICIAN INFORMS OF PLAN FOR THE PT TO POSSIBLY REMAIN INPT THROUGH THE WEEKEND. PLAN FOR THE PT TO D/C HOME WITH SPOUSE ON ORAL ABT'S AND HH WITH PT'S AND SPOUSES CHOSEN HH [facility]. CM FAXED PT'S INITIAL CLINICAL INFO TO [facility], AND PT'S D/C HH ORDERS WILL NEED TO BE FAXED AT D/C. CM WILL REMAIN AVAILABLE TO ASSIST AND FOLLOW NEEDED. [facility] PHONE: [phone] FAX: [phone]
--- NOTE | 2021-03-31 14:53 | NUR ---
PINK DRAINAGE NOTED AROUND INSERTION SITE UNDER BIOOCCLUSIVE DRESSING. IV SITE CLANSED WITH CHLOROPREP AND BIOOCCLUSIVE DRESSING CHANGED. LINE PATENT WITH GOOD BRISK BLOOD RETURN NOTED. NO PAIN OR SWELLING WITH FLUSHING.
--- NOTE | 2021-03-31 15:27 | NUR ---
WOUND NURSE: PATIENT SEEN TODAY FOR FOLLOW UP ASSESSMENT AND DRESSING CHANGE TO SACRUM AT THE TIME PATIENT WAS SEEN BY DR. CARR FOR WOUND DEBRIDEMENT. THE WOUND MEASURES SLIGHTLY LARGER TODAY 12.5 X 18.0 X 1.5 CM. APPROX 10% YELLOW FIRMLY ATTACHED SLOUGHJ IN [facility] WOUND BED. THERE IS SOME DARK RED TISSUE ALONG PART OF THE EDGEDS, BONE REMAINS EXPOSED IN THE WOUND BED. REMAINING TISS IS RED, GRANULATING AND NONGRANULATING. THERE IS SOME PERIWOUND EXCORIATION AND THIS WAS PROTECTED USING EXUDERM LP PRIOR TO LAYING DOWN THE TRANSPARENT DRAPE. WOUND VAC DRESSING WAS REAPPLIED PER PROTOCAL AND TOLERATED WELL BY THE PATIENT. RECOMMENDING AIR FLUIDIZED BED FOR THIS PATIENT IF SLHE MEETS CRITERIA -- FOLLOW UP TO COME REGARDING THIS. ALSO REPLACED CANNISTER WHICH WAS FULL WITH 475ML OF SEROUSANGUINOUS DRANAGE. RESULTS OF C&S BACK ALSO. PATIENT INSTRUCTED THAT SHE NEEDS TO CONSUME HER MEALS AND SUGEY SUPPLEMENTS OFFERED TO HER. THIS NEEDS TO BE REINFORCED WITH THE PATIENT.
[2021-03-31 15:53] VITALS: BP 97/67
[2021-03-31 20:00] VITALS: BP 169/82
[2021-04-01] VITALS: BP 148/69
[2021-04-01 04:00] VITALS: BP 168/88
--- NOTE | 2021-04-01 06:54 | NUR ---
ASSUMED CARE OF PT AFTER REPORT AT 1930. PT A&OX4. VSS. PHYSICAL ASSESSMENT COMPLETED AND CHARTED. PT ON RA. PT TRACING AFIB/BBB/PVC ON TELE. PT COMPLAINED OF NAUSEA-MED GIVEN PER MAR. PT WITH WOUNDS ON BILATERAL BUTTOCK, LEFT HIP & RIGHT HEEL-CLEANED, PAT DRY, PHOTOHRAPH TAKEN & COVERED WITH AQUACEL AG/THERAHONEY & BORDERED FOAM. SUPRAPUBIC CATHETER CHANGED LAST NIGHT. CALL LIGHT WITHIN REACH.
[2021-04-01 08:00] VITALS: BP 156/97
[2021-04-01 08:36] LABS: ABSOLUTE EOSINOPHILS 0.1 thou/uL (0.0-0.7); ABSOLUTE LYMPHOCYTES 0.5 thou/uL (0.8-5.3); ABSOLUTE MONOCYTES 0.7 thou/uL (0.0-1.2); ABSOLUTE NEUTROPHILS 9.8 thou/uL (1.6-8.1); BASOPHILS 0.3 %; EOSINOPHILS 1.3 %; HEMATOCRIT 21.9 % (37.0-47.0); HEMOGLOBIN 7.4 gm/dL (12.0-15.0); LYMPHOCYTES 4.7 %; MCHC 33.7 g/dL (28.0-37.0); MONOCYTES 5.9 %; MPV 8.3 fl. (7.2-11.1); NUCLEATED RBCS 0 /100WBC; PLATELET COUNT* 113 thou/uL (150-400); POLYS 87.8 %; RBC 2.64 mil/uL (4.20-5.00); RDW-CV 17.6 % (10.5-14.5); WBC 11.1 thou/uL (4.0-11.0)
[2021-04-01 08:39] LABS: PROTIME 44.3 Seconds (9.20-11.50)
[2021-04-01 08:50] LABS: CALCIUM 7.6 mg/dL (8.5-10.1); CREATININE 2.7 mg/dL (0.6-1.3); POTASSIUM 3.6 mmol/L (3.5-5.1)
[2021-04-01 08:54] LABS: INR 4.6
[2021-04-01 13:14] VITALS: BP 160/72
[2021-04-01 16:00] VITALS: BP 160/72
--- NOTE | 2021-04-01 19:00 | NUR ---
ASSUMED CARE OF PATIENT AT 0700. ALL ASSESSMENTS COMPLETED CHARTED. Q2 TURNS FOR SKIN INTEGRITY; PATIENT AT PRETTY WELL FOR HER MEALS; USED PAPER TO COMMUNICATE.
[2021-04-01 20:00] VITALS: BP 163/67
[2021-04-02] VITALS: BP 156/54
[2021-04-02 04:00] VITALS: BP 95/52
--- NOTE | 2021-04-02 07:54 | NUR ---
ASSUMED CARE OF PT AFTER REPORT AT 1930. PT A&OX4. VSS. PHYSICAL ASSESSMENT COMPLETED AND CHARTED. PT ON RA. PT TRACING AFIB/BBB/PVC ON TELE. PT TURNED TO SIDES. PT DENIES ANY PAIN. PT WITH COLOSTOMY BAG. PT WITH ABEL TO DEPENDENT DRAIN. PT REFUSED IV INSERTION EVEN AFTER EDUCATION. FALL PRECAUTIONS IN PLACE. CALL LIGHT WITHIN REACH.
[2021-04-02 08:00] VITALS: BP 161/78
[2021-04-02 11:07] LABS: ABSOLUTE EOSINOPHILS 0.1 thou/uL (0.0-0.7); ABSOLUTE LYMPHOCYTES 0.4 thou/uL (0.8-5.3); ABSOLUTE MONOCYTES 0.4 thou/uL (0.0-1.2); ABSOLUTE NEUTROPHILS 9.4 thou/uL (1.6-8.1); BASOPHILS 0.2 %; EOSINOPHILS 1.1 %; HEMATOCRIT 22.6 % (37.0-47.0); HEMOGLOBIN 7.4 gm/dL (12.0-15.0); LYMPHOCYTES 3.9 %; MCH 28.4 pg (26.0-34.0); MCHC 32.7 g/dL (28.0-37.0); MCV 86.9 fL (80.0-100.0); MONOCYTES 4.1 %; MPV 8.1 fl. (7.2-11.1); NUCLEATED RBCS 0 /100WBC; PLATELET COUNT* 111 thou/uL (150-400); POLYS 90.7 %; RBC 2.61 mil/uL (4.20-5.00); RDW-CV 17.9 % (10.5-14.5); WBC 10.4 thou/uL (4.0-11.0)
[2021-04-02 11:17] LABS: CALCIUM 7.8 mg/dL (8.5-10.1); CREATININE 2.7 mg/dL (0.6-1.3); POTASSIUM 3.9 mmol/L (3.5-5.1)
[2021-04-02 11:18] LABS: PROTIME 22.4 Seconds (9.20-11.50)
[2021-04-02 11:23] LABS: INR 2.2
[2021-04-02 12:00] VITALS: BP 161/91
[2021-04-02 16:00] VITALS: BP 157/76
[2021-04-02 20:00] VITALS: BP 166/75
[2021-04-03] VITALS: BP 153/70
[2021-04-03 04:00] VITALS: BP 155/72
[2021-04-03 07:26] LABS: ABSOLUTE EOSINOPHILS 0.2 thou/uL (0.0-0.7); ABSOLUTE LYMPHOCYTES 0.5 thou/uL (0.8-5.3); ABSOLUTE MONOCYTES 0.5 thou/uL (0.0-1.2); ABSOLUTE NEUTROPHILS 8.6 thou/uL (1.6-8.1); BASOPHILS 0.4 %; EOSINOPHILS 1.6 %; HEMATOCRIT 21.8 % (37.0-47.0); HEMOGLOBIN 7.4 gm/dL (12.0-15.0); LYMPHOCYTES 4.8 %; MCH 28.7 pg (26.0-34.0); MCHC 34.1 g/dL (28.0-37.0); MCV 84.2 fL (80.0-100.0); MONOCYTES 4.8 %; NUCLEATED RBCS 0 /100WBC; PLATELET COUNT* 106 thou/uL (150-400); POLYS 88.4 %; RBC 2.59 mil/uL (4.20-5.00); RDW-CV 18.1 % (10.5-14.5); WBC 9.8 thou/uL (4.0-11.0)
--- NOTE | 2021-04-03 07:34 | NUR ---
ASSUMED CARE OF PT AFTER REPORT AT 1930. PT A&OX4. VSS. PHYSICL ASSESSMENT COMPLETED AND CHARTED. PT ON RA. PT TRACING AFIB/BBB/PVC ON TELE. PT DENIES ANY PAIN. FALL PRECAUTIONS IN PLACE. PT ABLE TO SLEEP WELL ON BED. CALL LIGHT WITHIN REACH.
[2021-04-03 07:35] LABS: CALCIUM 7.5 mg/dL (8.5-10.1); CREATININE 2.6 mg/dL (0.6-1.3); POTASSIUM 3.8 mmol/L (3.5-5.1)
[2021-04-03 07:37] LABS: PROTIME 20.4 Seconds (9.20-11.50)
[2021-04-03 08:45] VITALS: BP 131/53
[2021-04-03] MEDS ORDERED: PROTONIX40 M2 PO (08:51)
[2021-04-03] MEDS ORDERED: CEFDINIR300 MG PO (08:51)
[2021-04-03] MEDS ORDERED: CARAFATE 1 GM TA1 G1 PO (08:51)
--- NOTE | 2021-04-03 11:17 | NUR ---
WOUND NURSE: PATIENT SEEN FOR DRESSING CHANGE AND FOLLOW UP ASSESSMENT OF SACRAL WOUND. CURRENTLY MEASURES POST DEBRIDEMENT PERFORMED TODAY BY DR. CARR WAS 12.0 X 15.5 X 1.5 CM. CONAINS >90% BEEFY RED, EARLY GRANULATION TISSUE. AND < 10% LIGHT BEIGE SLOUGH ADN TENDNONOUS MATERIAL. BONE ALSO REMAINS EXPOSED IN WOUND BED. DISPOSED OF 400 ML OF SEROUSANGUINOUS DRAINAGE IN THE OLD VAC ULTA CANNISTER. PERIWOUND IS PINK AND INTACT EXCEPT MILD EXCORIATION AT THE SUPERIOUR ASPECT OF THE WOUND BED. DR. RUBINA MELTON MD ORDERED HOME WOUND VAC FOR PATIENT. PATIENT ALSO WITH LEFT AND RIGHT ISCHIAL WOUNDS AND LEFT TROCHANTERIC (THIGH) WOUND. PATIENT HAS BLACKEND ESCHAR COVERING WOUND ON RIGHT HEEL. SEE INTERVENTION FOR ADDITIONAL WOUND ASSESSMENT. PATIENT TO BE DISCHARGED TO HOME WITH [facility] AND SPECIALIZED BED. PATIENT TO FOLLOW UP AT THE WOUND CARE CENTER HERE AT [facility] AFTER DISCHARGE TO HOME. PATIENT REINSTRUCTED ON OFF LOADING AND ON NUTRITIONAL NEEDS AND SUPPLEMENTS IN WRITING, AND SHE STATES SHE UNDERSTANDS.
--- NOTE | 2021-04-03 11:29 | NUR ---
PT REQUEST XANAX FOR ANXIETY. PT STATES THAT SHE HAS BEEN GETTING XANAX TWICE PER DAY BUT ACCORDING TO EMAR IT HAS BEEN ONCE. PT HAS XANAX BID FOR ANXIETY. PT ALSO GIVEN MEDICATION FOR PAIN DUE TO RECENT DRESSING CHANGES AND MOVING AROUND IN BED. OT TO SEE PT AT THIS TIME.
--- NOTE | 2021-04-03 12:29 | NUR ---
SPOKE WITH SANGEETA GONSALEZ HOME CARE NURSE. STATES PT IS ON THE SCHEDULE TO BE SEEN TOMORROW AND CAN NOT BE SEEN TODAY. UNABLE TO VERIFY IF PT HAS A WOUND VAC AND LOW AIR LOSS MATTRESS AT HOME. INFORMED PT HAS BEEN DISCHARGED, BUT WILL NEED TO BE SEEN SAME DAY TO COVERING AND LINING SUPERVISOR WOUND VAC.
--- NOTE | 2021-04-03 14:19 | NUR ---
PT SLEEPING AT THIS TIME. PT'S AT BEDSIDE. STATES THAT PT HAS A WOUND VAC AT THE HOUSE, BUT IS UNABLE TO SET IT UP ON HIS OWN. STATES THAT HE HAS SOME SUPPLIES AND ABLE TO RESEAL, BUT CAN NOT SET UP WOUND VAC. HOME HEALTH NURSE HAS APPOINTMENT TO SEE PT TOMORROW. ALSO, WORKING ON GETTING A SPECIALIZED MATTRESS FOR PATIENT. TRANSPORTATION WILL ALSO NEED TO BE SET VIA AMBULANCE.
[2021-04-03 19:18] VITALS: BP 166/69
[2021-04-03 20:00] VITALS: BP 169/77
[2021-04-04] VITALS (7 sets, daily range): BP systolic 153–174; BP diastolic 62–83
--- NOTE | 2021-04-04 05:13 | NUR ---
ASSUMED CARE OF PT AFTER REPORT AT 1930. PT A&OX4. VSS. PHYSICLA ASSESSMENT COMPLETED AND CHARTED. PT ON RA. PT TRACING AFIB/BBB ON TELE. PT DENIES ANY PAIN. PT ABLE TO SLEEP WELL ON BED. FALL PRECAUTIONS IN PLACE. CALL LIGHT WITHIN REACH.
[2021-04-04] MEDS ORDERED: HYDROCODON-ACE1 EAC7 PO (14:59)
--- NOTE | 2021-04-04 15:07 | NUR ---
PHYSICIAN INFORMS OF PLAN FOR THE PT TO D/C HOME TODAY WITH HH. CM SPOKE TO PT'S SPOUSE TO DISCUSS D/C NEEDS AND CONFIRM DME AT HOME. PT'S SPOUSE CONFIRMS AGAIN THAT THE PT HAS HOSPITAL BED, WOUND VAC, AND AIR MATTRESS AT HOME. PT AND SPOUSE REQUEST TO RESUME HH WITH [facility]. [facility] ACCEPTED PT AND WILL CONTACT THE PT'S SPOUSE TO ARRANGE A TIME TO VISIT. CM ARRANGED [facility] NON-EMERGENT TRANSPORT WITH [facility] FOR 1500 PER RN'S REQUEST. CM WILL REMAIN AVAILABLE TO ASSIST AND FOLLOW NEEDED. [facility] PHONE: [phone] FAX: [phone]
--- NOTE | 2021-04-04 15:12 | NUR ---
PT DISCHARGED HOME WITH HOME HEALTH VIA AMBULANCE NO IV PRESENT DURING DC MONITOR TAKEN OFF DISCUSSED DISCHARGE WITH NO CONCERNS AT THIS TIME
--- NOTE | 2021-04-06 16:12 | NUR ---
WOUND NURSE: LEARNED THAT [facility] DOES NOT ACCEPT PT'S INSURANCE. ATTEMPTED TO CALL PATIENT'S HOME AND HER SPOUSE'S LISTED PHONE NUMBER. SPOUSE'S PHONE OUT OF SERVICE. LEFT MESSAGE TO FOLLOW UP WITH ME, BUT CALL NOT RETURNED. SPOKE WITH MICAH AT [facility] AND SHE VERIFIED PATIENT'S PHONE NUMBER, BUT UNABLE IDENTIFY PREVIOUS [facility] MANAGING PATIENT'S WOUND. ASKED IF HOME HEALTH NURSE COULD VERIFY [facility] AND SCHEDULE PATIENT APPT WITH [facility]. SHE SAID YES.
== END 2021-04-04 15:17 | disposition home health service (06) | DRG 853 ==
LOC: M.ERS 14:55 → M.2W 16:47 → M.TBA-ER 16:47 → M.ORTHSURG 20:45 → M.2W 03-25 05:40
PROVIDERS: Internal Medicine; Internal Medicine Gastroenterology; Internal Medicine Nephrology; Physician Assistant; ADMIT Internal Medicine; ATTEND Internal Medicine
PROC: 30233N1 Transfusion of Nonautologous Red Blood Cells into Peripheral Vein, Percutaneous Approach (ICD-10-PCS; 2021-03-25)
PROC: 0DB98ZX Excision of Duodenum, Via Natural or Artificial Opening Endoscopic, Diagnostic (ICD-10-PCS; principal; 2021-03-27)
PROC: 0QB10ZZ Excision of Sacrum, Open Approach (ICD-10-PCS; 2021-04-03)
DX: A41.89 Other specified sepsis (principal); L89.154 Pressure ulcer of sacral region, stage 4; N17.0 Acute kidney failure with tubular necrosis; E43 Unspecified severe protein-calorie malnutrition; J15.6 Pneumonia due to other Gram-negative bacteria; K26.4 Chronic or unspecified duodenal ulcer with hemorrhage; N39.0 Urinary tract infection, site not specified; G82.20 Paraplegia, unspecified; D62 Acute posthemorrhagic anemia; I48.20 Chronic atrial fibrillation, unspecified; I13.0 Hypertensive heart and chronic kidney disease with heart failure and stage 1 through stage 4 chronic kidney disease, or unspecified chronic kidney disease; I50.42 Chronic combined systolic (congestive) and diastolic (congestive) heart failure; I42.9 Cardiomyopathy, unspecified; I96 Gangrene, not elsewhere classified; N18.9 Chronic kidney disease, unspecified; N31.2 Flaccid neuropathic bladder, not elsewhere classified; E11.22 Type 2 diabetes mellitus with diabetic chronic kidney disease; K44.9 Diaphragmatic hernia without obstruction or gangrene; K21.00 Gastro-esophageal reflux disease with esophagitis, without bleeding; I20.9 Angina pectoris, unspecified; Z20.822 Contact with and (suspected) exposure to COVID-19; Z79.01 Long term (current) use of anticoagulants; Z79.899 Other long term (current) drug therapy; Z79.4 Long term (current) use of insulin; Z68.25 Body mass index [BMI] 25.0-25.9, adult